=== PATIENT | male | born 1975 | race Asian ===

== ENCOUNTER 2018-05-15 09:44 | Emergency (ER) | payer MEDICAID ==
[~2018-05-15] VITALS: Ht 157.5 cm; Wt 61.4 kg
[2018-05-15 09:59] LABS: GLUCOSE,POINT OF CARE 157 MG/DL (70-110)
[2018-05-15 12:20] VITALS: BP 166/105
== END 2018-05-15 12:22 | disposition home or self-care (01) ==
LOC: EMS 09:45
DX: S00.86XA Insect bite (nonvenomous) of other part of head, initial encounter (principal); L02.01 Cutaneous abscess of face; F15.10 Other stimulant abuse, uncomplicated; F17.210 Nicotine dependence, cigarettes, uncomplicated; E11.9 Type 2 diabetes mellitus without complications; I10 Essential (primary) hypertension; F12.90 Cannabis use, unspecified, uncomplicated; F11.90 Opioid use, unspecified, uncomplicated; Z88.6 Allergy status to analgesic agent; W57.XXXA Bitten or stung by nonvenomous insect and other nonvenomous arthropods, initial encounter; Y93.89 Activity, other specified; Y92.89 Other specified places as the place of occurrence of the external cause; Y99.8 Other external cause status
CPT/HCPCS: 99283; 99406

== ENCOUNTER 2025-02-18 03:54 | Emergency (ER) | payer MEDICAID, OTHER ==
[~2025-02-18] VITALS: Ht 157.5 cm; Wt 62.7 kg
[2025-02-18] MEDS: AMOX TR/POT CLAV 875 MG/125 MG TABLET PO ONE (04:26)
[2025-02-18] MEDS: HYDROCODONE/ACETAMINOPHEN 5-325 MG TABLET PO ONE (04:26)
[2025-02-18] MEDS ORDERED: AMOX-457 PO (05:55)
[2025-02-18 06:05] VITALS: BP 172/96; PULSE 100; RESP 20; O2SAT 99
== END 2025-02-18 08:04 | disposition home or self-care (01) ==
LOC: EMS 03:55
DX: S51.832A Puncture wound without foreign body of left forearm, initial encounter (principal); E11.9 Type 2 diabetes mellitus without complications; I10 Essential (primary) hypertension; F12.90 Cannabis use, unspecified, uncomplicated; F17.210 Nicotine dependence, cigarettes, uncomplicated; Z88.6 Allergy status to analgesic agent; W54.0XXA Bitten by dog, initial encounter; Y93.89 Activity, other specified; Y92.89 Other specified places as the place of occurrence of the external cause; Y99.8 Other external cause status
CPT/HCPCS: 82962; 99283